=== PATIENT | female | born 2005 | race Caucasian/White ===

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

== ENCOUNTER 2025-03-08 18:21 | Emergency (ER) | payer BC, MEDICAID ==
[~2025-03-08] VITALS: Ht 154.9 cm; Wt 63.9 kg
[~2025-03-08 18:21] MED LIST changes: +ACET500T58 PO; +CLIN1CAP70 PO; +PRED20TA2 PO
[2025-03-08 18:40] VITALS: PULSE 93; RESP 17; O2SAT 95
[2025-03-08 18:58] LABS: Hematocrit 41.9 % (36.0-46.0); Hemoglobin 14.0 g/dL (12.2-16.2); Mean Corpuscular Hemoglobin 27.5 pg (28.0-32.0); Mean Corpuscular Volume 82.0 fL (80.0-100.0); Nucleated Red Blood Cells % 0.1 %
[2025-03-08 19:06] LABS: Chloride 103 mmol/L (98-107); Sodium 137 mmol/L (136-145)
[2025-03-08 19:07] LABS: Anion Gap 13 (5-15); Calcium 9.1 mg/dL (8.7-10.4); Carbon Dioxide 21 mmol/L (20-31)
[2025-03-08 19:10] VITALS: PULSE 90; RESP 14; O2SAT 94
[2025-03-08 19:17] LABS: BUN/Creatinine Ratio 7.1 (10.0-20.0); Blood Urea Nitrogen < 5 mg/dL (9-23); Glucose 107 mg/dL (74-106); Potassium 3.5 mmol/L (3.5-5.1)
--- NOTE | 2025-03-08 19:23 | DVH ---
CHEST RADIOGRAPH INDICATION: cough TECHNIQUE: Single frontal view of the chest was obtained COMPARISON: None FINDINGS: Lines and Tubes: None Lungs: No focal consolidation. Pleura: No effusion. No pneumothorax. Cardiomediastinal contours: Unremarkable Bones: No acute osseous abnormality. IMPRESSION: 1. No acute cardiopulmonary disease.
[2025-03-08 19:25] LABS: COVID19 ANTIGEN SOFIA FIA NEGATIVE (NEGATIVE)
[2025-03-08 19:34] LABS: Urine Protein, UAD Negative (Negative)
[2025-03-08] MEDS: ALBUTEROL SULF 2.5 MG/0.5ML(0.5%) NEB SOLN NEB ONE (19:34)
[2025-03-08] MEDS: IPRATROPIUM BROM 0.5 MG/2.5ML INH SOL NEB ONE (19:34)
[2025-03-08 19:35] VITALS: TEMP 98.7
[2025-03-08] MEDS: KETOROLAC TROMETH 30 MG/ML 1ML VIAL IV ONE (19:36)
[2025-03-08] MEDS: ONDANSETRON HCL 4 MG/2 ML VIAL IV ONE (19:37)
[2025-03-08] MEDS ORDERED: PROM1SOL4 PO (20:11)
[2025-03-08] MEDS ORDERED: IBUP-1454 PO (20:11)
[2025-03-08] MEDS ORDERED: AZITTAB PO (20:11)
--- NOTE | 2025-03-08 20:12 | ED.PDOC ---
History of Present Illness HPI Comments 19-year-old female complaining of fever and chills x3 days. States at home her fever was reading 106. Has been complaining of cough congestion headache. Intermittent nausea. Says she was in [place], other friends were sick with similar symptoms. Nothing makes it better, nothing makes it worse. No prior medical history. Chief Complaint: Flu like Time Seen by MD: 18:30 Primary Care Provider: CORINE Gore Notes: Nurses Notes Allergies: Coded Allergies: Penicillins (Verified Allergy, Unknown, 03/08/25) Home Meds Active Scripts Acetaminophen (Acetaminophen) 500 Mg Tab, 500 MG PO Q4HPRN, #30 TAB 0 Refills Prov:KANE CRAWFORD 11/30/23 Prednisone (Prednisone) 20 Mg Tab, 20 MG PO BID for 5 Days, #10 TAB 0 Refills Prov:KANE CRAWFORD 11/30/23 Clindamycin Hcl (Clindamycin Hcl) 300 Mg Cap, 300 MG PO QID for 7 Days, #28 CAP 0 Refills Prov:KANE CRAWFORD 11/30/23 Azithromycin (Azithromycin) 500 Mg Tab, 1 TAB PO DAILY, #5 TAB Prov:OMAR CEE 05/29/23 Ondansetron Odt 4MG Tab (ZOFRAN PO) 4 Mg Tb, 4 MG PO BID for 7 Days, #14 TAB ODT TAB-DISSOLVE IN MOUTH, THEN SWALLOW Prov:DIMPLE MEEHAN MD 10/16/22 Hydrocodone-Acetaminophen (Hydrocodone Bitartrate/AC 5-325 mg) 1 Tab Tab, 1 TAB PO BID for 7 Days, #14 TAB Prov:DIMPLE MEEHAN MD 10/16/22 Information Source: Patient Mode of Arrival: Ambulatory Past Medical History PAST MEDICAL HISTORY: Denies Surgical History: Denies all surgeries 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: No 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 History Family History Family History: Unknown Social History Smoker: Non-Smoker Alcohol: Denies ETOH Use Drugs: Denies Drug Use Lives In: Home Constitutional: reports: chills, fatigue, fever, malaise; denies: diaphoresis, sweats, weakness, others EENTM: denies: blurred vision, double vision, ear bleeding, ear discharge, ear drainage, ear pain, ear ringing, eye pain, eye redness, hearing loss, mouth pain, mouth swelling, nasal discharge, nose bleeding, nose congestion, nose pain, photophobia, tearing, throat pain, throat swelling, voice changes, others Respiratory: reports: cough; denies: hemoptysis, orthopnea, SOB at rest, sh ortness of breath, SOB with excertion, stridor, wheezing, others Cardiovascular: denies: chest pain, dizzy spells, diaphoresis, Dyspnea on exertion, edema, irregular heart beat, left arm pain, lightheadedness, palpitations, PND, syncope, others Gastrointestinal: reports: nausea, vomiting; denies: abdomen distended, abdominal pain, blood streaked bowels, constipated, diarrhea, dysphagia, difficulty swallowing, hematemesis, melena, poor appetite, poor fluid intake, rectal bleeding, rectal pain, others Genitourinary: denies: abnormal vagina bleeding, burning, dyspareunia, dysuria, flank pain, frequency, hematuria, incontinence, pain, , vagina disc harge, urgency, others Neurological: denies: dizziness, fainting, headache, left sided numbness, left sided weakness, numbness, paresthesia, pre-existing deficit, right sided numbness, right sided weakness, seizure, speech problems, tingling, tremors, weakness, others Musculoskeletal: denies: back pain, gout, joint pain, joint swelling, muscle pain, muscle stiffness, neck pain, others Integumetry: denies: bruises, change in color, change in hair/nails, dryness, laceration, lesions, lumps, rash, wounds, others Allergic/Immunocompromised: denies: Difficulty Healing, Frequent Infections, Hives, Itching, others Physical Exam General Appearance: No Apparent Distress, Normal HEENT: Normal ENT Inspection, Pharynx Normal, TMs Normal Neck: Full Range of Motion, Non-Tender, Normal, Normal Inspection Respiratory: Chest Non-Tender, Lungs Clear, No Accessory Muscle Use, No Respiratory Distress, Normal Breath Sounds Cardiovascular: No Edema, No JVD, No Murmur, No Gallop, Normal Peripheral Pulses, Regular Rate/Rhythm Breast Exam: Deferred Gastrointestinal: No Organomegaly, Non Tender, No Pulsatile Mass, Normal Bowel Sounds, Soft Genitalia: Deferred Pelvic: Deferred Rectal: Deferred Extremities: No calf tenderness, Normal capillary refill, Normal inspection, Normal range of motion, Non-tender, No pedal edema Musculoskeletal : Apperance: Normal Neurologic: Alert, old testament professor II-XII nml as Tested, No Motor Deficits, Normal Affect, Normal Mood, No Sensory Deficits Cerebellar Function: Normal Reflexes: Normal Skin: Dry, Normal Color, Warm Lymphatic: No Adenopathy Was a procedure done? Was a procedure done?: No Differential Dx Considerations may include: URI, bronchitis, influenza, COVID-19, pneumonia X-Ray, Labs, Meds, VS Vital Signs Date Time Temp Pulse Resp B/P (MAP) Pulse Ox O2 Delivery O2 Flow Rate FiO2 03/08/25 19:34 12 97 Room Air* 0 21 03/08/25 19:20 72 03/08/25 18:40 98.7 93 17 124/84 (97) 95 98.7 03/08/25 18:40 93 17 95 Room Air* 0 21 03/08/25 18:23 98.9 90 16 127/90 98 98.9 Lab Test 03/08/25 18:47 03/08/25 18:45 03/08/25 18:40 Range/Units Influenza Type A Antigen Positive Negative Influenza Type B Antigen Negative Negative SARS-CoV-2 Antigen (Rapid) Negative NEGATIVE White Blood Count 6.7 4.4-10.8 10^3/uL Red Blood Count 5.11 4.0-5.20 10^6/uL Hemoglobin 14.0 12.2-16.2 g/dL Hematocrit 41.9 36.0-46.0 % Mean Corpuscular Volume 82.0 80.0-100.0 fL Mean Corpuscular Hemoglobin 27.5 L 28.0-32.0 pg Mean Corpuscular Hemoglobin Concent 33.5 32.0-36.0 g/dL Red Cell Distribution Width 14.5 H 11.8-14.3 % Platelet Count 157 140-450 10^3/uL Mean Platelet Volume 7.6 6.9-10.8 fL Neutrophils (%) (Auto) 78.0 37.0-80.0 % Lymphocytes (%) (Auto) 7.7 L 10.0-50.0 % Monocytes (%) (Auto) 13.9 H 0.0-12.0 % Eosinophils (%) (Auto) 0.1 0.0-7.0 % Basophils (%) (Auto) 0.3 0.0-2.0 % Neutrophils # (Auto) 5.2 1.6-8.6 10 ^3/uL Lymphocytes # (Auto) 0.5 0.4-5.4 10 ^3/uL Monocytes # (Auto) 0.9 0-1.3 10 ^3/uL Eosinophils # (Auto) 0 0-0.8 10 ^3/uL Basophils # (Auto) 0 0-0.2 10 ^3/uL Nucleated Red Blood Cells 0.1 % Sodium Level 137 136-145 mmol/L Potassium Level 3.5 3.5-5.1 mmol/L Chloride Level 103 98-107 mmol/L Carbon Dioxide Level 21 20-31 mmol/L Anion Gap 13 5-15 Blood Urea Nitrogen < 5 L 9-23 mg/dL Creatinine 0.70 0.550-1.02 mg/dL Glomerular Filtration Rate Calc 128 >90 mL/min BUN/Creatinine Ratio 7.1 L 10.0-20.0 Serum Glucose 107 H 74-106 mg/dL Calcium Level 9.1 8.7-10.4 mg/dL Troponin I High Sensitivity < 3 L </=34 ng/L Urine Color Colorless Yellow Urine Clarity Clear Clear Urine pH 5.5 5.0-9.0 Urine Specific [place] 1.008 1.001-1.035 Urine Protein Negative Negative Urine Ketones Negative Negative Urine Blood 1+ H Negative /uL Urine Nitrite Negative Negative Urine Bilirubin Negative Negative Urine Urobilinogen Normal Negative mg/dL Urine Leukocyte Esterase Negative Negative /uL Urine RBC 2 0 - 4 /hpf Urine Microscopic WBC < 1 0-5 /HPF Urine Squamous Epithelial Cells Few <5 /hpf Urine Bacteria Mod H None Seen /hpf Urine Glucose Normal Normal mg/dL Current Medications Medications (Trade) Dose Ordered Sig/Shalini Route Start Time Stop Time Status Last Admin Albuterol (Ventolin Medneb) 2.5 mg ONCE ONCE NEB 03/08/25 19:15 03/08/25 19:16 DC 03/08/25 19:34 Ipratropium [place] (Atrovent Medneb) 0.5 mg ONCE ONCE NEB 03/08/25 19:15 03/08/25 19:16 DC 03/08/25 19:34 Ketorolac Tromethamine (Toradol Injection) 30 mg ONCE ONCE IV 03/08/25 19:15 03/08/25 19:16 DC 03/08/25 19:36 Ondansetron HCl (Zofran) 4 mg ONCE ONCE IV 03/08/25 19:30 03/08/25 19:31 DC 03/08/25 19:37 X-Ray, Labs, Meds, VS Comment Imaging was reviewed by this provider, there is no obvious pathological or acute disease process. Pending radiology review Labs were reviewed by this provider, positive influenza Vital signs reviewed by this provider, clinically stable Time of 1ST Reevaluation: 20:12 Reevaluation 1ST: Improved Patient Education/Counseling: Diagnosis, Treatment, Need For Follow Up (PCP next available appointment. Return to the emergency department if symptoms worsen.) Family Education/Counseling: Diagnosis, Treatment SEPSIS Sepsis Screen Date sepsis recognized/suspect: Mar 08, 2025 Time Sepsis recognized/suspect: 1839 Recent Procedure: No On Antibiotic Therapy: No Respiratory Rate >20: No Heart Rate >90: Yes Temp<36 C (96.8 F) or >38.3 C: No SBP <90 or MAP <65 mmHG: No New Acute Mental Status Change: No Is the patient on CPAP, BIPAP,: No Physician Orders Chest Xray 1 View (03/08/25 18:31) Electrocardigram (03/08/25 19:13) Vital Signs Date Time Temp Pulse Resp B/P (MAP) Pulse Ox O2 Delivery O2 Flow Rate FiO2 03/08/25 19:34 12 97 Room Air* 0 21 03/08/25 19:20 72 03/08/25 18:40 98.7 93 17 124/84 (97) 95 98.7 03/08/25 18:40 93 17 95 Room Air* 0 21 03/08/25 18:23 98.9 90 16 127/90 98 98.9 Laboratory Tests Test 03/08/25 18:45 White Blood Count 6.7 10^3/uL (4.4-10.8) Medications Medications Dose Ordered Sig/Shalini Route Start Time Stop Time Status Last Admin Dose Admin Albuterol 2.5 mg ONCE ONCE NEB 03/08/25 19:15 03/08/25 19:16 DC 03/08/25 19:34 Ipratropium [place] 0.5 mg ONCE ONCE NEB 03/08/25 19:15 03/08/25 19:16 DC 03/08/25 19:34 Ketorolac Tromethamine 30 mg ONCE ONCE IV 12/18/25 19:15 03/08/25 19:16 DC 03/08/25 19:36 Ondansetron HCl 4 mg ONCE ONCE IV 03/08/25 19:30 03/08/25 19:31 DC 03/08/25 19:37 Departure 1 Departure Time of Disposition: 20:10 Impression: Primary Impression: Influenza A Disposition: 01 HOME / SELF CARE / HOMELESS Condition: Fair e-Prescriptions Azithromycin (Zithromax Z-Markell) 250 Mg Tab 250 MG PO DAILY for 5 Days, #5 TAB Prov: ROBERTA HEAD 03/08/25 Promethazine-Dm (Promethazine Dm 6.25-15 mg/5Ml) 1 Cora Cora 5 ML PO TID PRN, #240 ML Prov: ROBERTA HEAD 03/08/25 Ibuprofen (Ibuprofen) 600 Mg Tab 1 TAB PO TID, #30 TAB Prov: ROBERTA HEAD 03/08/25 Discharged With: Self Critical Care Note Critical Care Time?: No Stability Stability form required: No Heart Score Heart Score: Heart Score Response (Comments) Value History N/A 0 EKG N/A 0 Age N/A 0 Risk Factors N/A 0 Troponin N/A 0 Total 0 ROBERTA HEAD Mar 08, 2025 20:12
--- NOTE | 2025-03-08 20:28 | ECG ---
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
[2025-03-08 21:10] VITALS: BP 121/76; PULSE 90; RESP 14; O2SAT 94
== END 2025-03-08 21:27 | disposition home or self-care (01) ==
LOC: ER 18:21
DX: J10.1 Influenza due to other identified influenza virus with other respiratory manifestations (principal); Z88.0 Allergy status to penicillin; Z79.899 Other long term (current) drug therapy; Z20.822 Contact with and (suspected) exposure to COVID-19
CPT/HCPCS: 36415; 71045; 80048; 81001; 84484; 85025; 87426; 87804; 93005; 94640; 96374; 96375; 99285; J1885; J2405